=== PATIENT | male | born 1955 | race Caucasian/White ===

== ENCOUNTER → 2016-10-20 | Outpatient (CLI) | payer OTHER | LOC: FIMAGING 07:45 | PROVIDERS: ATTEND Family Medicine | DX: S46.011A Strain of muscle(s) and tendon(s) of the rotator cuff of right shoulder, initial encounter (principal); M66.821 Spontaneous rupture of other tendons, right upper arm; M75.81 Other shoulder lesions, right shoulder; M19.011 Primary osteoarthritis, right shoulder ==